=== PATIENT | female | born 1965 | race Caucasian/White ===

== ENCOUNTER → 2017-02-19 | Day surgery (SDC) | payer OTHER ==
[~2017-02-19] VITALS: Ht 170.2 cm; Wt 86.2 kg
--- NOTE | 2017-02-19 08:58 | MAMMOGRAPHY REPORT ---
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 COMPARISON: Stereotactic biopsy dated 01/27/2017. TECHNIQUE NEEDLE LOC: Proper informed consent is obtained from the patient after discussion of the procedure, potential risks and complications, and alternatives including declining the procedure today. Patient was given an opportunity for questions. The patient appeared to understand. The patient consented to the procedure and signed the consent form. GUIDANCE: Digital mammography. APPROACH: Superior. TARGET: Biopsy clip in the 12:00 position of the left breast. ANESTHESIA: 10 mL Xylocaine 2%. LOCALIZATION MARKER: [employer] 7 cm needle localization system. The skin was prepped and local anesthesia administered. The needle was positioned and position assessed with mammography. The wire was hooked into position. The patient tolerated the procedure well and had no immediate complication. Diagram was marked for the surgeon. The target is a biopsy clip in the 12:00 position of the left breast, located at the hook of the wire, 6 cm deep to the skin with 12 cm of the wire remaining external to the skin. IMPRESSION: Status post left breast needle localization with wire hooked into position. The target is a biopsy clip in the 12:00 position of the left breast, located at the hook of the wire, 6 cm deep to the skin with 12 cm of the wire remaining external to the skin.
--- NOTE | 2017-02-19 16:56 | MAMMOGRAPHY REPORT ---
EXAMINATION: MM NEEDLE LOCALIZATION SPECIMEN FROM THE BREAST, LEFT CLINICAL INDICATION: Needle localization specimen radiograph. Atypical ductal hyperplasia. Features of phylloides tumor. COMPARISON: Needle localization films from earlier today. TECHNIQUE: Single specimen radiograph was obtained. FINDINGS: The radiograph of the excised surgical specimen shows that the hookwire is delivered intact and the marker clip is identified in the specimen. IMPRESSION: Satisfactory excision of the targeted lesion. These findings were not communicated to the surgeon in the OR at the time of specimen radiography due to technical difficulties with transmission of the specimen radiograph to PACS for review.
--- NOTE | 2017-02-19 18:50 | Operative Report ---
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 This was infiltrated local anesthetic and the incision was made with a 15 blade and knowing the depth of the lesion we deepened the it's skin incision with cautery about 2 cm before developing a cylinder of tissue aiming towards the wire which entered superiorly separately the initial dissection proceeded subcutaneously towards the wire until we could see the wire we placed an Allis clamp around the area divided the wire removed the proximal portion and with the Allis gently brought out into the incision opening and continued to develop the cylinder of tissue at the lumpectomy straight down vertically towards the chest wall until we knew her past the tip of the wire based on films and palpation. During this time you got a sense that the lesion was made anterior and the cylinder. After this was completely removed and oriented for the pathologist long lateral short superior silk sutures were then checked for hemostasis which was maintained all along with cautery and then we closed in layers using interrupted 3-0 Vicryl sutures subdermally and then a running subcuticular 4-0 Biosyn suture for the skin itself followed by Mastisol Steri-Strips Telfa and Tegaderm. EBL minimal lap and sponge counts correct wound expectancy clean IV fluids crystalloid complications none patient tolerated the procedure well was awakened and returned to recovery room in satisfactory condition.
== END ==
LOC: STS 02-18 13:00 → CBW.IIU 09:00 → STS 09:00 → CBW.MAMMO 09:30 → STS 09:52
DX: D24.2 Benign neoplasm of left breast (principal); N60.22 Fibroadenosis of left breast
CPT/HCPCS: 88307; J0131; J1170; J2001; J2250; J3010